=== PATIENT | male | born 1940 | race Two or more races ===

== ENCOUNTER 2017-09-15 00:48 | Emergency (ER) | payer MEDICARE, MEDICAID ==
[~2017-09-15] VITALS: Ht 182.9 cm; Wt 105.7 kg
[~2017-09-15 00:48] MED LIST: AMIO200T2 PO; CLON0.5T4 PO; ESCI20TA PO; FAMO20TA8 PO; FOLI1TAB16 PO; MECL-118 PO; METH750T3 PO; PANT40TA4 PO; TEMA30CA PO
[2017-09-15] MEDS ORDERED: HYDROCODONE/APAP 10/325MG 1 EA TABLET PO ONE (01:00)
--- NOTE | 2017-09-15 01:00 | NUR ---
JOHANRA [facility] DUE TO SEVER BACK PAIN. A/O X3. ON ROOM AIR, TOLERATING WELL. PT STATES THE BACK PAIN IS CHRONIC BUT THIS TIME ITS MUCH WORSE AND HIS PAIN MEDS WERE NOT HELPING. DENIES FALLING OR RECENT INURY. MD AT BEDSIDE.
[2017-09-15] MEDS ORDERED: HYDROCODONE/APAP 10/325MG 1 EA TABLET ONE (01:10)
[2017-09-15 01:21] LABS: EOSINOPHILS # (AUTO) 0.2 /CMM (0.0-0.7); MONOCYTES # (AUTO) 0.6 /CMM (0.1-1.30); MONOCYTES % (AUTO) 6.4 % (2.0-12.0)
[2017-09-15 01:22] LABS: BASOPHILS # (AUTO) 0.1 /CMM (0.0-0.2); BASOPHILS % (AUTO) 0.5 % (0.0-2.0); EOSINOPHILS % (AUTO) 1.6 % (0.0-6.0); HEMATOCRIT 30 % (39-51); HEMOGLOBIN 9.1 g/dL (13.5-17.5); LYMPHOCYTES # (AUTO) 1.6 /CMM (0.8-4.8); LYMPHOCYTES % (AUTO) 16.3 % (20.0-44.0); MEAN CORPUSCULAR HEMOGLOBIN 22 PG (26.0-33.0); MEAN CORPUSCULAR HGB CONC 30 g/dl (31.0-36.0); MEAN CORPUSCULAR VOLUME 73 fL (80-96); NEUTROPHILS # (AUTO) 7.6 /CMM (1.8-8.9); NEUTROPHILS % (AUTO) 75.2 % (43.0-81.0); PLATELET COUNT (AUTO) 334 /CMM (150-450); RDW COEFFICIENT OF VARIATION 19.5 (11.5-15.0); RED BLOOD CELL COUNT(AUTO) 4.17 MIL/uL (4.5-6.0)
[2017-09-15 01:30] LABS: CALCIUM, SERUM 8.9 mg/dL (8.5-10.1); CARBON DIOXIDE 27 mmol/L (21-32); CHLORIDE 107 mmol/L (98-107); CREATININE 1.8 mg/dL (0.6-1.3); GLUCOSE 112 mg/dL (74-106); SODIUM SERUM 142 mmol/L (136-145); UREA NITROGEN, BLOOD 17 mg/dL (7-18)
[2017-09-15 01:35] LABS: ALANINE AMINOTRANSFERASE 29 U/L (12-78); ALBUMIN 3.9 g/dL (3.4-5.0); ALKALINE PHOSPHATASE 94 U/L (46-116); ASPARTATE AMINOTRANSFERASE 23 U/L (15-37); BILIRUBIN,TOTAL 0.4 mg/dL (0.2-1.0); LIPASE 127 U/L (73-393); TOTAL PROTEIN, SERUM 7.8 g/dL (6.4-8.2)
[2017-09-15 01:38] LABS: TROPONIN I < 0.017 ng/mL (0.00-0.056)
--- NOTE | 2017-09-15 02:22 | NUR ---
PT STATES PAIN LEVEL HAS DECREASE TO 2/10 WITH MILD ACHING AT BACK. Addendum: 09/15/17 at 0223 by PAOLO PT REQUESTING TO GO HOME.
[2017-09-15 02:25] LABS: APPEARANCE,URINE CLEAR (CLEAR); BILIRUBIN,URINE NEGATIVE (NEGATIVE); BLOOD, URINE NEGATIVE Ery/uL (NEGATIVE); COLOR,URINE YELLOW (YELLOW); KETONES,URINE NEGATIVE (NEGATIVE); LEUKOCYTE ESTERASE ,URINE NEGATIVE (NEGATIVE); NITRITE, URINE NEGATIVE (NEGATIVE); PH,URINE 6.5 (5.0-8.0); PROTEIN,URINE NEGATIVE (NEGATIVE); UGLUCOSE NEGATIVE (NEGATIVE); UROBILINOGEN,URINE 0.2 EU/dL (0.2)
[2017-09-15] MEDS ORDERED: HYDROCODONE/APAP 5/325MG 1 EACH TABLET PO ONE (02:30)
[2017-09-15] MEDS ORDERED: HYDROCODONE/APAP 5/325MG 1 EACH TABLET ONE (02:30)
--- NOTE | 2017-09-15 02:32 | NUR ---
CALLED [facility] FOR TRANSPORTATION GOING [facility] TO [facility] ETA [id number]
--- NOTE | 2017-09-15 04:01 | NUR ---
REPORT GIVEN TO [facility] EMT. PT REC'D D/C PAPERWORK FROM KSYLAR HARTMAN. Patient discharged to home in stable condition. Written and verbal after care instructions given. Patient verbalizes understanding of instruction. VSS.
[2017-09-15 04:06] VITALS: BP 160/70
== END 2017-09-15 04:12 ==
LOC: ER 00:50
DX: M54.5 Low back pain (principal); G89.29 Other chronic pain; N28.9 Disorder of kidney and ureter, unspecified; D50.9 Iron deficiency anemia, unspecified; I10 Essential (primary) hypertension; K21.9 Gastro-esophageal reflux disease without esophagitis; Z88.6 Allergy status to analgesic agent; Z79.899 Other long term (current) drug therapy
CPT/HCPCS: 36415; 80053-TC; 81000-TC; 83690-TC; 84484-TC; 85025-TC; A4606; Z7610